=== PATIENT | male | born 1940 | race Caucasian/White ===

== ENCOUNTER → 2017-12-11 | Outpatient (CLI) | payer MEDICARE, OTHER ==
[~2017-12-11] MED LIST: ADULT LOW DOSE81 MG PO; ADVAIR 250-501 EACH IH; ALBUTEROL SULFATE PO; ALBUTEROL2.5 MG/31 IH; ALEVE220 M1 PO; ALEVE220 MG PO; AMLODIPINE PO; BENADRYL25 MG PO; BROVANA15 MCG/2 M INH; CATAPRES0.2 MG PO; CLONIDINE; CLONIDINE HCL0.2 M2 GT; COLACE100 MG PO; FLOMAX0.4 MG PO; FLONASE 0.05%50 MCG NASAL; HYDROCODONE-AP1 EAC6 PO; INHALER; LEVAQUIN 750 M750 MG PO; LIDODERM 5%1 PATC1 TRANSDERM; LISINOPRIL10 MG PO; MIRALAX17 GM PO; NICOTINE TRANSD14 M1 TD; NICOTINE TRANSD21 M1 TRANSDERM; NORCO 5-325 TA1 EACH PO; OCEAN45 ML NASAL; PREDNISONE 10 M10 M1 PO; PREDNISONE 10 M10 MG PO; PREDNISONE 20 M20 MG PO; PRINIVIL20 MG PO; PROSTATE MED; PROSTATE MED PO; PROTONIX40 M1 PO; SALINE NASAL SP30 ML NS; SINGULAIR 10 MG10 M1 PO; VENTOLIN HFA 1818 GM INH; XANAX 0.5 MG0.5 MG PO
== END ==
LOC: M.RAD 16:59
DX: J44.1 Chronic obstructive pulmonary disease with (acute) exacerbation (principal); I70.0 Atherosclerosis of aorta; I10 Essential (primary) hypertension